=== PATIENT | female | born 1985 | race Hispanic/Latino ===

== ENCOUNTER → 2020-03-15 | Outpatient (CLI) | payer BC, OTHER | END | disposition home or self-care (01) | LOC: SHCH 16:33 | PROVIDERS: ATTEND Internal Medicine Cardiovascular Disease | DX: R55 Syncope and collapse (principal); R00.2 Palpitations; R00.1 Bradycardia, unspecified | CPT/HCPCS: 93306; 93356 ==

== ENCOUNTER → 2022-05-18 | Outpatient (CLI) | payer BC, OTHER ==
[~2022-05-18] MED LIST: CALDOLOR 800MG+NS 250ML 250 ML IV SCH; CEFAZOLIN SODIUM 1 GM VIAL IVP ONE; LACTATED RINGERS 1000ML 1,000 ML IV SCH
[2022-05-18 15:17] LABS: BASOPHILS % (AUTO) 0.4 % (0.0-5.0); EOSINOPHILS % (AUTO) 0.4 % (0.0-8.0); HEMATOCRIT 34.2 % (36-48); LYMPHOCYTES % (AUTO) 25.4 % (21.0-51.0); MEAN CORPUSCULAR HEMOGLOBIN 23.7 pg (27.0-33.0); MEAN CORPUSCULAR VOLUME 76.5 fL (79-99); MONOCYTES % (AUTO) 6.5 % (3.0-13.0); NEUTROPHILS % (AUTO) 67.1 % (40.0-77.0); PLATELET COUNT (AUTO) 215 K/uL (130-400); RED BLOOD CELL COUNT(AUTO) 4.47 MIL/uL (4.00-5.50); RED CELL DISTRIBUTION WIDTH 15.1 % (11.0-15.5); WHITE BLOOD COUNT (AUTO) 8.2 K/uL (4.8-10.8)
== END | disposition home or self-care (01) ==
LOC: DAH 10:00 → EDSTATUS 05-21 07:30
PROVIDERS: ATTEND Obstetrics & Gynecology
DX: Z01.818 Encounter for other preprocedural examination (principal); R87.613 High grade squamous intraepithelial lesion on cytologic smear of cervix (HGSIL)
CPT/HCPCS: 36415; 84703; 85025; 86850; 86900; 86901; 87426; J1741

== ENCOUNTER 2022-06-04 05:52 | Day surgery (SDC) | payer BC, OTHER ==
[2022-06-01 15:16] VITALS: BP 107/61
[2022-06-01 15:45] LABS: BASOPHILS % (AUTO) 0.5 % (0.0-5.0); EOSINOPHILS % (AUTO) 0.7 % (0.0-8.0); HEMATOCRIT 33.9 % (36-48); LYMPHOCYTES % (AUTO) 27.8 % (21.0-51.0); MEAN CORPUSCULAR HEMOGLOBIN 23.8 pg (27.0-33.0); MEAN CORPUSCULAR VOLUME 76.9 fL (79-99); MONOCYTES % (AUTO) 6.2 % (3.0-13.0); NEUTROPHILS % (AUTO) 64.6 % (40.0-77.0); PLATELET COUNT (AUTO) 206 K/uL (130-400); RED BLOOD CELL COUNT(AUTO) 4.41 MIL/uL (4.00-5.50); RED CELL DISTRIBUTION WIDTH 15.5 % (11.0-15.5); WHITE BLOOD COUNT (AUTO) 8.4 K/uL (4.8-10.8)
[~2022-06-04] VITALS: Ht 170.2 cm; Wt 79.8 kg
[2022-06-04] VITALS (15 sets, daily range): BP systolic 111–132; BP diastolic 51–84
[~2022-06-04 05:52] MED LIST changes: -CALDOLOR 800MG+NS 250ML 250 ML IV SCH; -CEFAZOLIN SODIUM 1 GM VIAL IVP ONE; +FOLIC ACID PO; -LACTATED RINGERS 1000ML 1,000 ML IV SCH; +STRONG IODINE SOLN 14ML BOTTLE ONE; +VITAMIN B12 PO
[2022-06-04] MEDS ORDERED: CALDOLOR 800MG+NS 250ML 250 ML IV ONE (06:11)
[2022-06-04] MEDS ORDERED: LACTATED RINGERS 1000ML 1,000 ML IV ONE (06:14)
[2022-06-04] MEDS ORDERED: CEFAZOLIN SODIUM 1 GM VIAL ONE (06:20)
[2022-06-04] MEDS ORDERED: MIDAZOLAM HCL 1 MG/ML 2ML VIAL ONE (06:58)
[2022-06-04] MEDS ORDERED: LIDOCAINE PF 100MG/5ML (2%) SYRINGE 5ML ONE (06:58)
[2022-06-04] MEDS ORDERED: FENTANYL CITRATE PF 50 MCG/1 ML 2ML VIAL ONE (06:59)
[2022-06-04] MEDS ORDERED: PROPOFOL 10 MG/ML 20ML VIAL IV ONE (06:59)
[2022-06-04] MEDS ORDERED: CEFAZOLIN SODIUM 2 GM VIAL IV ONE (07:38)
[2022-06-04] MEDS ORDERED: PHENYLEPHRINE HCL 10 MG/ML 1ML VIAL IV ONE (07:44)
[2022-06-04] MEDS ORDERED: ONDANSETRON 4MG INJ ONE (07:56)
[2022-06-04] MEDS ORDERED: DEXAMETHASONE SOD PHOSPHATE 4 MG/ML 1ML VIAL ONE (07:56)
== END 2022-06-04 10:00 | disposition home or self-care (01) ==
LOC: DAH 05:52
PROVIDERS: ATTEND Obstetrics & Gynecology
DX: R87.613 High grade squamous intraepithelial lesion on cytologic smear of cervix (HGSIL) (principal); Z20.822 Contact with and (suspected) exposure to COVID-19; Z79.899 Other long term (current) drug therapy; Z79.01 Long term (current) use of anticoagulants; Z83.3 Family history of diabetes mellitus; Z82.49 Family history of ischemic heart disease and other diseases of the circulatory system; Z80.51 Family history of malignant neoplasm of kidney; Z72.89 Other problems related to lifestyle
CPT/HCPCS: 84703; 85025; 86850 ×2; 86900 ×2; 86901 ×2; 87426; 36415 ×2; 57520; 81025; A6260; J1100; A4663; J7030; A4351; J7120; J3010; J0690 ×2; J2001; J2250; J2704; J2405; J2370; J1741; A4215; A4223; A4222; A4221; A4510; A4600